=== PATIENT | female | born 1985 | race Caucasian/White ===

== ENCOUNTER 2017-04-02 11:17 | Emergency (ER) | payer OTHER ==
[2017-04-02 11:53] LABS: Bilirubin Negative (Negative); Blood, Urine Trace (Negative); Glucose, Urine (Dipstick) Negative (Negative); Ketone, Urine Negative (Negative); Nitrite Negative (Negative); Protein, Urine (Dipstick) Negative (Neg-Trace); Urobilinogen 0.2 mg/dL (0.2-1.0)
[2017-04-02 12:03] LABS: Bacteria/HPF Rare-Few HPF (None Seen); RBC/HPF 0-3 HPF (0-3); Squamous Epithelial 0-3 HPF (0-3); WBC/HPF 0-3 HPF (0-3)
[2017-04-02] MEDS ORDERED: Ondansetron HCl/PF 4 MG/2 ML Vial ONE (12:53)
[2017-04-02 12:54] LABS: #Basophils 0.1 thou/uL (0.0-0.2); #Eosinphils 0.2 thou/uL (0.0-0.7); #Lymphocytes 1.7 thou/uL (1.20-3.40); #Monocytes 0.3 thou/uL (0.11-0.59); #Neutrophils 3.1 thou/uL (1.40-6.50); %Basophils 1.7 % (0.0-1.0); %Eosinophils 3.5 % (0.0-10.0); %Lymphocytes 32.2 % (21.0-51.0); Hematocrit 40.6 % (36.0-47.0); Mean Platelet Volume 7.6 fL (7.4-10.4); Red Blood Cell (RBC) Count 4.35 mill/uL (4.20-5.40); White Blood Cell (WBC) Count 5.4 thou/uL (4.8-10.8)
[2017-04-02 13:08] LABS: ALT (SGPT) 11 U/L (8-55); AST (SGOT) 13 U/L (5-34); Alkaline Phosphatase 40 U/L (40-150); Anion Gap 16 mmol/L (10-20); BUN (Urea Nitrogen) 14 mg/dL (7.0-18.7); Bilirubin, Total 0.2 mg/dL (0.2-1.2); Calc. Creatinine Clearance 0 mL/min (70-130); Calcium 9.1 mg/dL (7.8-10.44); Carbon Dioxide 20 mmol/L (22-29); Chloride 109 mmol/L (98-107); Estimated GFR-MDRD 82; Globulin 2.7 g/dL (2.4-3.5); Lipase 18 U/L (8-78); Protein, Total 7.2 g/dL (6.0-8.3)
== END 2017-04-02 14:44 | disposition home or self-care (01) ==
LOC: SCSER 11:17
DX: B34.9 Viral infection, unspecified (principal); E27.1 Primary adrenocortical insufficiency; Z87.891 Personal history of nicotine dependence
CPT/HCPCS: 36415; 80053; 81003; 81015; 83690; 85025; 96361; 96374; J2405

== ENCOUNTER 2017-05-31 10:15 | Emergency (ER) | payer OTHER ==
[2017-05-31 11:13] LABS: Bilirubin Negative (Negative); Blood, Urine Negative (Negative); Clarity Clear (Clear); Glucose, Urine (Dipstick) Negative (Negative); Leukocyte Negative (Negative); Nitrite Negative (Negative); Protein, Urine (Dipstick) Negative (Neg-Trace); Urobilinogen 0.2 mg/dL (0.2-1.0); pH, Urine 8.5 (5.0-9.0)
[2017-05-31 11:13] LABS: #Basophils 0.1 thou/uL (0.0-0.2); #Eosinphils 0.2 thou/uL (0.0-0.7); #Lymphocytes 2.4 thou/uL (1.20-3.40); #Monocytes 0.3 thou/uL (0.11-0.59); %Basophils 1.6 % (0.0-1.0); %Eosinophils 3.2 % (0.0-10.0); %Lymphocytes 48.1 % (21.0-51.0); %Monocytes 6.7 % (0.0-10.0); %Neutrophils 40.4 % (42.0-75.0); Hemoglobin 14.1 g/dL (12.0-16.0); Mean Corpuscular HGB CONC 33.5 g/dL (32.0-36.0); Mean Corpuscular Volume 92.6 fl (81.0-99.0); Mean Platelet Volume 7.8 fL (7.4-10.4); Platelet Count 259 thou/uL (130-400); RBC Distribution Width 11.3 % (11.5-14.5); Red Blood Cell (RBC) Count 4.54 mill/uL (4.20-5.40); White Blood Cell (WBC) Count 5.1 thou/uL (4.8-10.8)
[2017-05-31 11:16] LABS: BHCG - Serum Negative (NEGATIVE); Pregs Control Background? CLEAR/WHITE (CLR/WHITE); Pregs Control Bar Appear? YES (CONTROL BAR)
[2017-05-31 11:21] LABS: Anion Gap 15 mmol/L (10-20); BUN (Urea Nitrogen) 9 mg/dL (7.0-18.7); Calc. Creatinine Clearance 0 mL/min (70-130); Calcium 9.9 mg/dL (7.8-10.44); Carbon Dioxide 24 mmol/L (22-29); Chloride 106 mmol/L (98-107); Estimated GFR-MDRD 81; Glucose 83 mg/dL (70-105); Potassium 3.9 mmol/L (3.5-5.1); Sodium 141 mmol/L (136-145)
== END 2017-05-31 12:53 | disposition home or self-care (01) ==
LOC: SCSER 10:15
DX: E86.0 Dehydration (principal); E27.1 Primary adrenocortical insufficiency; Z87.891 Personal history of nicotine dependence
CPT/HCPCS: 80048; 81003; 84443; 84703; 85025; 87086; 96360; 96361

== ENCOUNTER 2017-08-19 14:26 | Emergency (ER) | payer OTHER ==
[2017-08-19 14:58] LABS: Bilirubin Negative (Negative); Blood, Urine Negative (Negative); Clarity Clear (Clear); Glucose, Urine (Dipstick) Negative (Negative); Leukocyte Negative (Negative); Nitrite Negative (Negative); Pregnancy Test - Urine (BHCG) Negative (Negative); Pregu Control Background? CLEAR/WHITE (CLR/WHITE); Pregu Control Bar Appear? YES (CONTROL BAR); Protein, Urine (Dipstick) Negative (Neg-Trace); Urobilinogen 0.2 mg/dL (0.2-1.0); pH, Urine 6.5 (5.0-9.0)
[2017-08-19] MEDS ORDERED: Promethazine HCl 25 MG/ML VIAL ONE (15:12)
[2017-08-19] MEDS ORDERED: Hydrocortisone Sod Succ/PF 100 mg/2 ml Vial ONE (15:21)
[2017-08-19] MEDS ORDERED: Water For Inject, Bacteriostat 30 ML ONE (15:22)
[2017-08-19 15:25] LABS: ALT (SGPT) 12 U/L (8-55); AST (SGOT) 15 U/L (5-34); Albumin 4.5 g/dL (3.5-5.0); Alkaline Phosphatase 39 U/L (40-150); Anion Gap 16 mmol/L (10-20); BUN (Urea Nitrogen) 18 mg/dL (7.0-18.7); Bilirubin, Total 0.3 mg/dL (0.2-1.2); Calc. Creatinine Clearance 0 mL/min (70-130); Calcium 9.2 mg/dL (7.8-10.44); Carbon Dioxide 21 mmol/L (22-29); Chloride 107 mmol/L (98-107); Estimated GFR-MDRD 77; Globulin 2.8 g/dL (2.4-3.5); Glucose 97 mg/dL (70-105); Lipase 18 U/L (8-78); Potassium 3.8 mmol/L (3.5-5.1); Protein, Total 7.3 g/dL (6.0-8.3); Sodium 140 mmol/L (136-145)
[2017-08-19 15:30] LABS: Band 3 % (5-11); Eosinophils 1 % (0-10); Hemoglobin 13.5 g/dL (12.0-16.0); Lymphocytes 27 % (21-51); MDiff Complete? YES; Mean Corpuscular Volume 91.5 fl (81.0-99.0); Monocytes 3 % (0-10); Neutrophil 66 % (42-75); PLT Morphology Comment Appears Adequate; Platelet Count 243 thou/uL (130-400); RBC Distribution Width 11.3 % (11.5-14.5); RBC Morphology Normal; Red Blood Cell (RBC) Count 4.22 mill/uL (4.20-5.40); White Blood Cell (WBC) Count 8.3 thou/uL (4.8-10.8)
== END 2017-08-19 16:40 | disposition home or self-care (01) ==
LOC: SCSER 14:26
DX: R19.7 Diarrhea, unspecified (principal); E27.1 Primary adrenocortical insufficiency
CPT/HCPCS: 80053; 81003; 81025; 82533; 83605; 83690; 85025; 87045; 87046; 87324; 87449; 87899; 96361; 96374; J1720; J2550

== ENCOUNTER 2017-09-22 09:41 | Emergency (ER) | payer OTHER ==
[~2017-09-22 09:41] MED LIST: Iopamidol 370 76% 100 ML VIAL ONE
[2017-09-22 10:24] LABS: Pregnancy Test - Urine (BHCG) Negative (Negative); Pregu Control Background? CLEAR/WHITE (CLR/WHITE); Pregu Control Bar Appear? YES (CONTROL BAR); Specific Gravity 1.013 (1.002-1.036)
[2017-09-22 10:33] LABS: Cocaine Metabolite Screen Not Detected (NotDetected); Methamphetamine Not Detected (NotDetected); Opiate Screen Not Detected (NotDetected); Phencyclidine (PCP) Not Detected (NotDetected); THC/Cannabinoid Screen Not Detected (NotDetected)
[2017-09-22 10:34] LABS: Amphetamine Not Detected (NotDetected); Barbiturates Screen Not Detected (NotDetected); Benzodiazepine Screen Not Detected (NotDetected); Medtox Control Line Valid? VALID (VALID); Methadone Not Detected (NotDetected); Oxycodone Screen Not Detected (NotDetected); Tricyclic Screen Not Detected (NotDetected)
[2017-09-22 10:41] LABS: #Basophils 0.1 thou/uL (0.0-0.2); #Eosinphils 0.2 thou/uL (0.0-0.7); #Monocytes 0.8 thou/uL (0.11-0.59); #Neutrophils 9.6 thou/uL (1.40-6.50); %Basophils 0.8 % (0.0-1.0); %Eosinophils 1.5 % (0.0-10.0); %Lymphocytes 15.4 % (21.0-51.0); %Monocytes 6.2 % (0.0-10.0); %Neutrophils 76.1 % (42.0-75.0); Hemoglobin 13.2 g/dL (12.0-16.0); Mean Corpuscular HGB CONC 34.8 g/dL (32.0-36.0); Mean Corpuscular Hemoglobin 31.9 pg (27.0-31.0); Mean Corpuscular Volume 91.6 fl (81.0-99.0); Platelet Count 231 thou/uL (130-400); RBC Distribution Width 11.8 % (11.5-14.5); Red Blood Cell (RBC) Count 4.14 mill/uL (4.20-5.40); White Blood Cell (WBC) Count 12.7 thou/uL (4.8-10.8)
[2017-09-22 10:57] LABS: ALT (SGPT) 16 U/L (8-55); AST (SGOT) 23 U/L (5-34); Acetaminophen Less than 6.0 mcg/mL (10.0-30.0); Albumin 4.4 g/dL (3.5-5.0); Alcohol 31 mg/dL (Less than 10); Alkaline Phosphatase 40 U/L (40-150); Anion Gap 14 mmol/L (10-20); BUN (Urea Nitrogen) 10 mg/dL (7.0-18.7); Bilirubin, Total 0.2 mg/dL (0.2-1.2); Calc. Creatinine Clearance 0 mL/min (70-130); Carbon Dioxide 23 mmol/L (22-29); Chloride 110 mmol/L (98-107); Estimated GFR-MDRD Greater than 90; Globulin 2.6 g/dL (2.4-3.5); Glucose 83 mg/dL (70-105); Lipase 22 U/L (8-78); Salicylate Less than 8.0 mg/dL (15.0-30.0); Sodium 143 mmol/L (136-145)
[2017-09-22 11:16] LABS: Bilirubin Negative (Negative); Blood, Urine Trace (Negative); Clarity Clear (Clear); Glucose, Urine (Dipstick) Negative (Negative); Leukocyte Small (Negative); Nitrite Negative (Negative); Protein, Urine (Dipstick) Negative (Neg-Trace); Specific Gravity, Urine 1.015 (1.005-1.030); Urobilinogen 0.2 mg/dL (0.2-1.0); pH, Urine 8.5 (5.0-9.0)
[2017-09-22 11:18] LABS: Bacteria/HPF 2+ HPF (None Seen); Squamous Epithelial 0-3 HPF (0-3); WBC/HPF 0-3 HPF (0-3)
[2017-09-22] MEDS ORDERED: Ketorolac Tromethamine 30 MG/ML VIAL ONE (11:25)
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
== END 2017-09-22 11:25 | disposition home or self-care (01) ==
LOC: SCSER 09:41
DX: S00.83XA Contusion of other part of head, initial encounter (principal); S80.01XA Contusion of right knee, initial encounter; R10.9 Unspecified abdominal pain; Z87.442 Personal history of urinary calculi; V89.2XXA Person injured in unspecified motor-vehicle accident, traffic, initial encounter
CPT/HCPCS: 70450; 70486; 71260; 72125; 74177; 80053; 80306; 80307; 81003; 81015; 81025; 83690; 85025; J1885

== ENCOUNTER 2017-11-03 11:39 | Emergency (ER) | payer OTHER | END 2017-11-03 12:34 | disposition home or self-care (01) | LOC: ERS 11:39 | DX: S29.012A Strain of muscle and tendon of back wall of thorax, initial encounter (principal); X58.XXXA Exposure to other specified factors, initial encounter | CPT/HCPCS: 99283 ==

== ENCOUNTER 2018-01-05 11:09 | Emergency (ER) | payer OTHER ==
--- NOTE | 2018-01-05 12:14 | RAD ---
TWO VIEWS OF THE CHEST: COMPARISON: 03/02/14. HISTORY: Mittie's disease. Cough and chest tightness. FINDINGS: Two views of the chest show normal sized cardiomediastinal silhouette. There is no evidence of consol idation, mass, or pleural effusion. The bones are unremarkable. IMPRESSION: No evidence of acute cardiopulmonary disease. POS: [facility]
[2018-01-05 12:22] LABS: MONO NEGATIVE CONTROL ZONE White (Negative) (White); MONO POSITIVE CONTROL Pink Line (Positive) (PINK/RED); Mononucleosis NEGATIVE (NEGATIVE)
[2018-01-05 12:24] LABS: Anion Gap 12 mmol/L (10-20); BUN (Urea Nitrogen) 14 mg/dL (7.0-18.7); Calc. Creatinine Clearance 0 mL/min (70-130); Carbon Dioxide 22 mmol/L (22-29); Chloride 110 mmol/L (98-107); Estimated GFR-MDRD Greater than 90; Glucose 87 mg/dL (70-105); Potassium 4.1 mmol/L (3.5-5.1); Sodium 140 mmol/L (136-145)
[2018-01-05 12:25] LABS: #Basophils 0.1 thou/uL (0.0-0.2); #Eosinphils 0.1 thou/uL (0.0-0.7); #Lymphocytes 1.4 thou/uL (1.20-3.40); #Monocytes 0.5 thou/uL (0.11-0.59); #Neutrophils 4.4 thou/uL (1.40-6.50); %Basophils 1.1 % (0.0-1.0); %Eosinophils 1.9 % (0.0-10.0); %Lymphocytes 22.1 % (21.0-51.0); %Monocytes 7.1 % (0.0-10.0); %Neutrophils 67.8 % (42.0-75.0); Hemoglobin 13.5 g/dL (12.0-16.0); Mean Corpuscular HGB CONC 34.3 g/dL (32.0-36.0); Mean Corpuscular Hemoglobin 31.1 pg (27.0-31.0); Mean Corpuscular Volume 90.8 fL (78.0-98.0); Mean Platelet Volume 7.6 fL (7.4-10.4); Platelet Count 242 thou/uL (130-400); Red Blood Cell (RBC) Count 4.33 mill/uL (4.20-5.40); White Blood Cell (WBC) Count 6.4 thou/uL (4.8-10.8)
== END 2018-01-05 13:27 | disposition home or self-care (01) ==
LOC: SCSER 11:09
DX: B34.9 Viral infection, unspecified (principal); J06.9 Acute upper respiratory infection, unspecified; E27.1 Primary adrenocortical insufficiency
CPT/HCPCS: 71046; 80048; 85025; 86308; 87081; 87430; 87804; 93005

== ENCOUNTER 2018-01-15 17:23 | Emergency (ER) | payer OTHER ==
[2018-01-15 18:39] LABS: Bilirubin Negative (Negative); Blood, Urine Negative (Negative); Clarity CLEAR (Clear); Glucose, Urine (Dipstick) Negative (Negative); Leukocyte Negative (Negative); Nitrite Negative (Negative); Protein, Urine (Dipstick) Negative (Neg-Trace); Specific Gravity, Urine 1.016 (1.002-1.036); Urobilinogen 0.2 mg/dL (0.2-1.0); pH, Urine 6.5 (5.0-9.0)
[2018-01-15 18:42] LABS: Pregnancy Test - Urine (BHCG) Negative (Negative); Pregu Control Background? CLEAR/WHITE (CLR/WHITE); Pregu Control Bar Appear? YES (CONTROL BAR); Specific Gravity 1.016 (1.002-1.036)
[2018-01-15 18:49] LABS: #Eosinphils 0.1 thou/uL (0.0-0.7); #Lymphocytes 1.9 thou/uL (1.20-3.40); #Monocytes 0.4 thou/uL (0.11-0.59); %Basophils 0.9 % (0.0-1.0); %Eosinophils 1.4 % (0.0-10.0); %Lymphocytes 34.9 % (21.0-51.0); %Monocytes 7.9 % (0.0-10.0); Hemoglobin 13.1 g/dL (12.0-16.0); Mean Corpuscular HGB CONC 33.1 g/dL (32.0-36.0); Mean Corpuscular Hemoglobin 31.1 pg (27.0-31.0); Mean Platelet Volume 7.5 fL (7.4-10.4); Platelet Count 269 thou/uL (130-400); RBC Distribution Width 11.6 % (11.5-14.5); Red Blood Cell (RBC) Count 4.21 mill/uL (4.20-5.40); White Blood Cell (WBC) Count 5.5 thou/uL (4.8-10.8)
[2018-01-15 19:09] LABS: ALT (SGPT) 8 U/L (8-55); AST (SGOT) 14 U/L (5-34); Albumin 4.6 g/dL (3.5-5.0); Alkaline Phosphatase 33 U/L (40-150); Anion Gap 13 mmol/L (10-20); BUN (Urea Nitrogen) 14 mg/dL (7.0-18.7); Bilirubin, Total 0.6 mg/dL (0.2-1.2); Calc. Creatinine Clearance 0 mL/min (70-130); Calcium 9.3 mg/dL (7.8-10.44); Carbon Dioxide 21 mmol/L (22-29); Chloride 108 mmol/L (98-107); Estimated GFR-MDRD 80; Globulin 2.8 g/dL (2.4-3.5); Glucose 80 mg/dL (70-105); Lipase 12 U/L (8-78); Potassium 3.8 mmol/L (3.5-5.1); Protein, Total 7.4 g/dL (6.0-8.3); Sodium 138 mmol/L (136-145)
[2018-01-15] MEDS ORDERED: Ketorolac Tromethamine 30 MG/ML VIAL ONE (19:40)
--- NOTE | 2018-01-15 19:45 | ULT ---
PELVIC ULTRASOUND WITH RIVERA SCALE AND DOPPLER COLOR FLOW IMAGING TRANSVAGINAL PELVIC ULTRASOUND/TRANSABDOMINAL PELVIC ULTRASOUND 01/15/18 FINDINGS: There is surgical absence of the left ovary. Doppler evaluation confirms flow to the right ovary. The re is a 7 mm endometrial stripe which is appropriate in size for patient's age. There is a small hypo echoic focus at the lower uterine segment region. This could relate to a small cyst or alternatively a focus of localized endometrial fluid. Small volume of free pelvic fluid is present. The documented size of the uterus is 7.3 cm in length and of the right ovary is 4.2 cm in length. IMPRESSION: 1. Surgical absence of the left ovary. 2. Doppler evaluation confirms flow in the right ovary. 3. Mild free pelvic fluid is nonspecific. 4. Additional details are described above. POS: [facility]
== END 2018-01-15 20:27 | disposition home or self-care (01) ==
LOC: ERS 17:23
DX: N83.201 Unspecified ovarian cyst, right side (principal); I34.1 Nonrheumatic mitral (valve) prolapse; Z79.899 Other long term (current) drug therapy; Z87.442 Personal history of urinary calculi
CPT/HCPCS: 36415; 76856; 80053; 81003; 81025; 83690; 84702; 85025; 96372; J1885

== ENCOUNTER 2018-05-14 13:14 | Emergency (ER) | payer OTHER ==
[2018-05-14 14:10] LABS: Bilirubin Negative (Negative); Blood, Urine Negative (Negative); Clarity Clear (Clear); Glucose, Urine (Dipstick) Negative (Negative); Leukocyte Negative (Negative); Nitrite Negative (Negative); Protein, Urine (Dipstick) Negative (Neg-Trace); Specific Gravity, Urine 1.015 (1.005-1.030); Urobilinogen 0.2 mg/dL (0.2-1.0)
[2018-05-14 14:16] LABS: #Basophils 0.1 thou/uL (0.0-0.2); #Eosinphils 0.1 thou/uL (0.0-0.7); #Lymphocytes 1.9 thou/uL (1.20-3.40); #Monocytes 0.4 thou/uL (0.11-0.59); #Neutrophils 5.2 thou/uL (1.40-6.50); %Lymphocytes 24.2 % (21.0-51.0); %Monocytes 5.4 % (0.0-10.0); %Neutrophils 68.4 % (42.0-75.0); Hemoglobin 13.8 g/dL (12.0-16.0); Mean Corpuscular HGB CONC 33.8 g/dL (32.0-36.0); Mean Corpuscular Hemoglobin 31.5 pg (27.0-31.0); Mean Corpuscular Volume 93.2 fL (78.0-98.0); Mean Platelet Volume 8.6 fL (7.4-10.4); Platelet Count 239 thou/uL (130-400); RBC Distribution Width 11.8 % (11.5-14.5); Red Blood Cell (RBC) Count 4.38 mill/uL (4.20-5.40); White Blood Cell (WBC) Count 7.6 thou/uL (4.8-10.8)
[2018-05-14 14:25] LABS: Anion Gap 12 mmol/L (10-20); BUN (Urea Nitrogen) 18 mg/dL (7.0-18.7); Calc. Creatinine Clearance 0 mL/min (70-130); Carbon Dioxide 24 mmol/L (22-29); Chloride 108 mmol/L (98-107); Estimated GFR-MDRD Greater than 90; Glucose 84 mg/dL (70-105); Potassium 3.8 mmol/L (3.5-5.1); Sodium 140 mmol/L (136-145)
[2018-05-16 16:52] LABS: Chlamydia by PCR Not Detected (NotDetected); GC by PCR Not Detected (NotDetected)
== END 2018-05-14 14:50 | disposition home or self-care (01) ==
LOC: SCSER 13:14
DX: R10.30 Lower abdominal pain, unspecified (principal); R10.2 Pelvic and perineal pain; Z79.899 Other long term (current) drug therapy
CPT/HCPCS: 80048; 81003; 84702; 85025; 87480; 87491; 87510; 87591; 87660; 93005

== ENCOUNTER 2018-11-06 12:32 | Emergency (ER) | payer OTHER ==
[2018-11-06 13:22] LABS: #Basophils 0.1 thou/uL (0.0-0.2); #Eosinphils 0.1 thou/uL (0.0-0.7); #Lymphocytes 1.8 thou/uL (1.20-3.40); #Monocytes 0.4 thou/uL (0.11-0.59); #Neutrophils 4.1 thou/uL (1.40-6.50); %Basophils 1.1 % (0.0-1.0); %Eosinophils 1.5 % (0.0-10.0); %Lymphocytes 28.1 % (21.0-51.0); %Monocytes 6.1 % (0.0-10.0); %Neutrophils 63.4 % (42.0-75.0); Hemoglobin 13.3 g/dL (12.0-16.0); Mean Corpuscular HGB CONC 32.8 g/dL (32.0-36.0); Mean Corpuscular Hemoglobin 31.4 pg (27.0-31.0); Mean Corpuscular Volume 95.8 fL (78.0-98.0); Mean Platelet Volume 7.7 fL (7.4-10.4); Platelet Count 235 thou/uL (130-400); RBC Distribution Width 12.4 % (11.5-14.5); Red Blood Cell (RBC) Count 4.23 mill/uL (4.20-5.40); White Blood Cell (WBC) Count 6.4 thou/uL (4.8-10.8)
[2018-11-06 13:27] LABS: Bilirubin Negative (Negative); Blood, Urine Trace (Negative); Clarity Clear (Clear); Glucose, Urine (Dipstick) Negative (Negative); Leukocyte Negative (Negative); Nitrite Negative (Negative); Protein, Urine (Dipstick) Negative (Neg-Trace); Urobilinogen 0.2 mg/dL (Less than 2)
[2018-11-06 13:29] LABS: Pregnancy Test - Urine (BHCG) Negative (Negative); Pregu Control Background? CLEAR/WHITE (CLR/WHITE); Pregu Control Bar Appear? YES (CONTROL BAR); Specific Gravity 1.015 (1.002-1.036)
[2018-11-06 13:31] LABS: Anion Gap 12 mmol/L (10-20); BUN (Urea Nitrogen) 16 mg/dL (7.0-18.7); Calc. Creatinine Clearance 0 mL/min (70-130); Calcium 9.2 mg/dL (7.8-10.44); Carbon Dioxide 24 mmol/L (22-29); Chloride 107 mmol/L (98-107); Estimated GFR-MDRD 86; Glucose 93 mg/dL (70-105); Potassium 4.1 mmol/L (3.5-5.1); Sodium 139 mmol/L (136-145)
[2018-11-06 13:37] LABS: RBC/HPF 0-3 HPF (0-3); WBC/HPF None Seen HPF (0-3)
[2018-11-06 13:38] LABS: Bacteria/HPF 1+ HPF (None Seen)
--- NOTE | 2018-11-06 14:04 | ULT ---
EXAM: Pelvic ultrasound HISTORY: Pelvic pain with negative test. COMPARISON: None TECHNIQUE: Multiple grayscale and color Doppler images were obtained in a transabdominal and transvag inal pelvic ultrasound. Spectral analysis of the Doppler waveforms of the ovaries were performed. FINDINGS: CERVIX: No evidence of nabothian cysts. UTERUS: Normal in size without focal abnormality. ENDOMETRIAL STRIPE: 9 mm. No free fluid is seen in the pelvis. RIGHT OVARY: Normal flow without focal mass. A dominant follicle is seen in the right ovary measuring 2.8 cm in size. LEFT OVARY: Surgically absent IMPRESSION: No significant pelvic abnormality
--- NOTE | 2018-11-06 14:49 | CT ---
ABDOMEN AND PELVIC CT SCAN WITH IV CONTRAST: HISTORY: Right lower quadrant pain. COMPARISON: 11/17/2016 and 09/22/2017. FINDINGS: The lung bases are clear. Status post cholecystectomy. The liver, pancreas, spleen, and adrenal gla nds are unremarkable. Stable 2.9 x 4.1 cm anterior perirenal cyst. No renal calculus or acute ob struction. No large or small bowel obstruction. Normal-appearing appendix. In the cecum, there is a 0.4 x 1.5 cm diameter circumscribed hyperdensity probably representing some type of ingested radiop aque pill. Moderate free cul-de-sac fluid. A 2.6 cm right ovarian follicle cyst. No other acute pr ocess. IMPRESSION: Dominant follicle right ovary with some free cul-de-sac fluid. Stable left anterior perirenal cyst. No evidence for acute appendicitis. No other significant acute process. POS: [facility]
[2018-11-07 23:05] LABS: Chlamydia by PCR Not Detected (NotDetected); GC by PCR Not Detected (NotDetected)
== END 2018-11-06 15:00 | disposition home or self-care (01) ==
LOC: SCSER 12:32
DX: N83.201 Unspecified ovarian cyst, right side (principal); F41.9 Anxiety disorder, unspecified; Z87.891 Personal history of nicotine dependence; Z79.899 Other long term (current) drug therapy
CPT/HCPCS: 74177; 76856; 80048; 81003; 81015; 81025; 85025; 87480; 87491; 87510; 87591; 87660; 93005; 96360; 96361

== ENCOUNTER 2018-12-04 09:21 | Emergency (ER) | payer OTHER ==
[2018-12-04 10:33] LABS: Bilirubin Negative (Negative); Blood, Urine Negative (Negative); Clarity Clear (Clear); Glucose, Urine (Dipstick) Normal (Negative); Leukocyte Negative Leu/uL (Negative); Nitrite Negative (Negative); Protein, Urine (Dipstick) Negative (Neg-Trace); Urobilinogen Normal mg/dL (Less than 2)
[2018-12-04 10:35] LABS: Pregnancy Test - Urine (BHCG) Negative (Negative); Pregu Control Background? CLEAR/WHITE (CLR/WHITE); Pregu Control Bar Appear? YES (CONTROL BAR); Specific Gravity 1.007 (1.002-1.036)
[2018-12-04] MEDS ORDERED: Hydrocortisone Sod Succ/PF 100 mg/2 ml Vial ONE (10:35)
[2018-12-04 10:42] LABS: #Lymphocytes 1.3 thou/uL (1.20-3.40); #Monocytes 0.2 thou/uL (0.11-0.59); #Neutrophils 4.9 thou/uL (1.40-6.50); %Basophils 0.5 % (0.0-1.0); %Eosinophils 0.5 % (0.0-10.0); %Lymphocytes 19.8 % (21.0-51.0); %Monocytes 2.5 % (0.0-10.0); %Neutrophils 76.7 % (42.0-75.0); Hemoglobin 14.2 g/dL (12.0-16.0); Mean Corpuscular HGB CONC 33.8 g/dL (32.0-36.0); Mean Corpuscular Hemoglobin 31.7 pg (27.0-31.0); Mean Corpuscular Volume 93.6 fL (78.0-98.0); Mean Platelet Volume 8.1 fL (7.4-10.4); Platelet Count 273 thou/uL (130-400); RBC Distribution Width 11.7 % (11.5-14.5); Red Blood Cell (RBC) Count 4.49 mill/uL (4.20-5.40); White Blood Cell (WBC) Count 6.4 thou/uL (4.8-10.8)
[2018-12-04 10:54] LABS: ALT (SGPT) 9 U/L (8-55); AST (SGOT) 12 U/L (5-34); Albumin 4.8 g/dL (3.5-5.0); Alkaline Phosphatase 38 U/L (40-150); Anion Gap 12 mmol/L (10-20); BUN (Urea Nitrogen) 14 mg/dL (7.0-18.7); Bilirubin, Total 0.6 mg/dL (0.2-1.2); Calc. Creatinine Clearance 0 mL/min (70-130); Calcium 10.3 mg/dL (7.8-10.44); Carbon Dioxide 22 mmol/L (22-29); Chloride 109 mmol/L (98-107); Estimated GFR-MDRD 77; Globulin 2.9 g/dL (2.4-3.5); Glucose 90 mg/dL (70-105); Potassium 3.5 mmol/L (3.5-5.1); Protein, Total 7.7 g/dL (6.0-8.3); Sodium 139 mmol/L (136-145)
== END 2018-12-04 12:51 | disposition home or self-care (01) ==
LOC: ERS 09:21
DX: E27.2 Addisonian crisis (principal); F41.9 Anxiety disorder, unspecified; Z87.891 Personal history of nicotine dependence; Z79.899 Other long term (current) drug therapy
CPT/HCPCS: 80053; 81003; 81025; 85025; 87086; 96361; 96374; J1720

== ENCOUNTER 2019-01-10 12:32 | Emergency (ER) | payer OTHER ==
[2019-01-10 13:06] LABS: #Basophils 0.1 thou/uL (0.0-0.2); #Eosinphils 0.1 thou/uL (0.0-0.7); #Lymphocytes 1.8 thou/uL (1.20-3.40); #Monocytes 0.4 thou/uL (0.11-0.59); #Neutrophils 4.1 thou/uL (1.40-6.50); %Eosinophils 2.1 % (0.0-10.0); %Lymphocytes 27.7 % (21.0-51.0); %Monocytes 5.4 % (0.0-10.0); %Neutrophils 63.8 % (42.0-75.0); Hemoglobin 13.3 g/dL (12.0-16.0); Mean Corpuscular HGB CONC 33.8 g/dL (32.0-36.0); Mean Corpuscular Hemoglobin 31.6 pg (27.0-31.0); Mean Corpuscular Volume 93.6 fL (78.0-98.0); Mean Platelet Volume 8.2 fL (7.4-10.4); Platelet Count 246 thou/uL (130-400); RBC Distribution Width 12.4 % (11.5-14.5); White Blood Cell (WBC) Count 6.4 thou/uL (4.8-10.8)
[2019-01-10 13:19] LABS: ALT (SGPT) 17 U/L (8-55); AST (SGOT) 17 U/L (5-34); Albumin 4.4 g/dL (3.5-5.0); Alkaline Phosphatase 36 U/L (40-110); Anion Gap 15 mmol/L (10-20); BUN (Urea Nitrogen) 13 mg/dL (7.0-18.7); Bilirubin, Total 0.3 mg/dL (0.2-1.2); Calc. Creatinine Clearance 0 mL/min (70-130); Calcium 9.2 mg/dL (7.8-10.44); Carbon Dioxide 23 mmol/L (22-29); Chloride 107 mmol/L (98-107); Estimated GFR-MDRD 78; Globulin 2.8 g/dL (2.4-3.5); Glucose 93 mg/dL (70-105); Potassium 3.7 mmol/L (3.5-5.1); Protein, Total 7.2 g/dL (6.0-8.3); Sodium 141 mmol/L (136-145)
[2019-01-10] MEDS ORDERED: methylPREDNISolone Sod Succ/PF 125 MG/2 ML VIAL ONE (13:22)
[2019-01-10 13:35] LABS: BHCG - Serum Negative (NEGATIVE); Pregs Control Background? CLEAR/WHITE (CLR/WHITE); Pregs Control Bar Appear? YES (CONTROL BAR)
[2019-01-10 14:01] LABS: Bilirubin Negative (Negative); Blood, Urine Negative (Negative); Clarity Clear (Clear); Glucose, Urine (Dipstick) Negative (Negative); Leukocyte Negative (Negative); Nitrite Negative (Negative); Protein, Urine (Dipstick) Negative (Neg-Trace); Urobilinogen 0.2 mg/dL (Less than 2)
[2019-01-10 14:46] LABS: Thyroid Stimulating Hormone 0.5858 uIU/mL (0.35-4.94)
== END 2019-01-10 14:39 | disposition home or self-care (01) ==
LOC: SCSER 12:32
DX: E86.0 Dehydration (principal); R53.83 Other fatigue; F41.9 Anxiety disorder, unspecified; Z87.891 Personal history of nicotine dependence; Z79.899 Other long term (current) drug therapy
CPT/HCPCS: 80053; 81003; 84443; 84703; 85025; 96361; 96374; J2930

== ENCOUNTER 2019-02-27 01:59 | Observation (INO) | payer OTHER ==
[2019-02-27 04:18] LABS: Bacteria/HPF None Seen HPF (None Seen); Bilirubin Negative (Negative); Blood, Urine 2+ (Negative); Clarity Clear (Clear); Glucose, Urine (Dipstick) Normal (Negative); Leukocyte Negative Leu/uL (Negative); Nitrite Negative (Negative); Protein, Urine (Dipstick) Negative (Neg-Trace); RBC/HPF 0-3 HPF (0-3); Squamous Epithelial None Seen HPF (0-3); Urobilinogen Normal mg/dL (Less than 2); WBC/HPF 0-3 HPF (0-3)
[2019-02-27 04:20] LABS: Pregnancy Test - Urine (BHCG) Negative (Negative); Pregu Control Background? CLEAR/WHITE (CLR/WHITE); Pregu Control Bar Appear? YES (CONTROL BAR)
[2019-02-27] MEDS ORDERED: Ondansetron ODT 4 MG TAB PO PRN (04:57)
[2019-02-27] MEDS ORDERED: Loperamide HCl 2 MG CAP PO PRN ×2 (04:57)
[2019-02-27] MEDS ORDERED: Acetaminophen 500 MG TAB PO PRN (04:57)
[2019-02-27 05:28] VITALS: BMI 24.0
[2019-02-27] MEDS: Hydrocortisone Sod Succ/PF 100 mg/2 ml Vial IVP SCH ×3 (06:01→18:17)
[2019-02-27] MEDS: methylPREDNISolone Sod Succ 40 MG VIAL IVP SCH ×3 (06:01→18:18)
[2019-02-27] MEDS: Sodium Chloride 0.9% 1,000 ML IV SCH ×2 (06:01→16:47)
--- NOTE | 2019-02-27 06:22 | HP ---
PRIMARY CARE PROVIDER: Amy Montana PA-C CHIEF COMPLAINT: Nausea, vomiting, and diarrhea. HISTORY OF PRESENT ILLNESS: This is a 33-year-old female, who initially presented to [place] [facility] with complaints of chills, fever, nausea, vomiting, and intractable diarrhea. The patient states her symptoms began in the last 24 to 48 hours as her father had similar symptoms over the last 2 to 3 days. The patient states she has been assisting her father and helping care for him when she developed her symptoms. 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 The patient states she usually titrates her dosage based on illness, but was unable to hold down her chronic medications due to persistent nausea and vomiting. The patient admitted to abdominal cramping, multiple bouts of diarrhea, but no hematemesis or melena, or blood in the stool. 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 The patient denied any travel history, change to her dietary regimen, but did admit to exposure to her father who had similar symptoms. In the emergency room, the patient underwent general evaluation, receiving multiple medications to include IV Solu-Cortef and IV Solu-Medrol. The patient was also given intravenous normal saline boluses and IV Zofran. The patient states she was improving symptomatically with decreased abdominal cramping and resolution of vomiting. The patient was referred to [facility] for further evaluation and consideration for continuation of Solu-Cortef and Solu-Medrol. PAST MEDICAL HISTORY: 1. Lauri's disease. 2. Anxiety. 3. History of renal lithiasis. 4. Mitral valve prolapse. PAST SURGICAL HISTORY: 1. Status post cholecystectomy. 2. Status post dilation and curettage. 3. Status post left fallopian tube and ovarian removal. CURRENT MEDICATIONS: 1. Hydrocortisone 10 mg p.o. t.i.d. 2. Clonazepam 1 mg p.o. at bedtime. 3. Potassium chloride 20 mEq p.o. daily. 4. Zofran ODT 4 mg p.o. q.6 hours p.r.n. 5. Florinef 0.1 mg p.o. daily. 6. Agnieszka root extract 1000 mg p.o. daily. ALLERGIES: TO AMOXICILLIN, BACTRIM, SULFA. FAMILY HISTORY: Mother with structural heart disease of unknown type. SOCIAL HISTORY: No current alcohol, tobacco, or illicit drug use. Quit tobacco products 5 to 10 years prior to this evaluation. Functional of all activities of daily living. REVIEW OF SYSTEMS: CONSTITUTIONAL: Negative for weight loss or gain, ability to conduct usual activities. SKIN: Negative for rash, itching. EYES: Negative for double vision, pain. ENT/MOUTH: Negative for nose bleeding, neck stiffness, pain, tenderness. CARDIOVASCULAR: Negative for palpitations, dyspnea on exertion, orthopnea. RESPIRATORY: Negative for shortness of breath, wheezing, cough, hemoptysis, fever or night sweats. GASTROINTESTINAL: Negative for poor appetite, abdominal pain, heartburn, nausea, vomiting, constipation, or diarrhea. GENITOURINARY: Negative for urgency, frequency, dysuria, nocturia. MUSCULOSKELETAL: Negative for pain, swelling. NEUROLOGIC/PSYCHIATRIC: Negative for anxiety, depression. ALLERGY/IMMUNOLOGIC: Negative for skin rash, bleeding tendency. Otherwise negative except as stated per HPI. PHYSICAL EXAMINATION: VITAL SIGNS: On admission, blood pressure 148/91, pulse 104, respiratory rate 20, temperature 101 degrees Fahrenheit, O2 saturation 100% on room air. GENERAL APPEARANCE: This is a 33-year-old female, alert and oriented x3, pale appearing, pleasant, in no acute distress. HEENT: Pupils are equal, round, reactive to light and accommodation. Extraocular muscles are intact. No scleral icterus. No conjunctival injection. Nares patent. OP is clear. Oral mucosa dry. NECK: Supple. No cervical adenopathy. No thyromegaly. No carotid bruits. No JVD appreciated. Cervical spine with full active and passive range of motion. No meningeal signs noted. CHEST: Lungs are clear to auscultation bilaterally. CARDIOVASCULAR: S1 and S2 without noted murmur, rub, or gallop. ABDOMEN: Rounded, soft with mild tenderness to palpation diffusely. No rebound or guarding appreciated. No palpable mass. EXTREMITIES: Warm and dry with fair turgor. No clubbing, cyanosis, or asymmetric edema appreciated. Pulses palpable distally at the dorsalis pedis, posterior tibial, and popliteal arteries bilaterally. Capillary refill less than 2 seconds. NEUROLOGIC: Cranial nerves 2 through 12 are grossly intact. No focal or lateralizing signs appreciated. PERTINENT LABORATORY AND X-RAY FINDINGS: Basic metabolic profile within normal limits. Lactic acid level 1.2. LFTs within normal limits. CBC showed a white blood cell count of 10.1, hemoglobin 14, hematocrit 42, platelet count 258 with 81% neutrophilia. Urinalysis positive for blood, otherwise negative. ASSESSMENT AND PLAN: 1. Acute gastroenteritis. The patient will be observed on the medical floor. We will continue IV normal saline at 100 mL/h. Antiemetics as clinically indicated. Clear liquids as tolerated. Suspect viral etiology. 2. Addisonian crisis. Improved after initial doses of Solu-Medrol and Solu-Cortef in the emergency room. We will continue Solu-Cortef 50 mg IV q.6 hours with additional Solu-Medrol 40 mg IV q.6 hours. Continue IV fluids as outlined in #1. 3. Dehydration. Continue IV fluids as outlined previously. Encourage increased free water intake orally. 4. Anxiety disorder. Continue clonazepam 1 mg p.o. at bedtime. 5. Prophylaxis. SCDs while in bed. Pepcid 20 mg IV b.i.d. CODE STATUS: Full. Surrogate medical decision maker is the patient's father. Job ID: [id number]
[2019-02-27] MEDS ORDERED: Potassium Chloride 20 MEQ TAB PO SCH (08:00)
[2019-02-27] MEDS: Famotidine/PF 20 mg/2ml Vial SLOW IVP SCH ×2 (08:04→20:44)
[2019-02-27] MEDS ORDERED: ALPRAZolam 1 MG TAB PO PRN (08:56)
[2019-02-27] MEDS ORDERED: FLU VACC QS2019-20(6MOS UP)/PF 60 MCG/0.5 ML SYRINGE IM ONE (09:00)
[2019-02-27] MEDS: Fludrocortisone Acetate 0.1 MG TAB PO SCH (09:06)
[2019-02-27] MEDS: Ondansetron PF 4 MG/2 ML Vial IVP PRN ×2 (14:14→20:44)
[2019-02-27] MEDS ORDERED: Melatonin 3 MG TAB PO PRN (18:25)
[2019-02-27] MEDS ORDERED: traZODone HCl 50 MG TAB PO PRN (18:25)
[2019-02-27] MEDS ORDERED: Zolpidem Tartrate 5 MG TAB PO PRN (19:03)
[2019-02-27] MEDS ORDERED: clonazePAM 1 MG TAB PO SCH (21:00)
[2019-02-27] MEDS ORDERED: Hydrocortisone Sod Succ/PF 100 mg/2 ml Vial IVP SCH (22:00)
[2019-02-28] MEDS ORDERED: Hydrocortisone Sod Succ/PF 100 mg/2 ml Vial IVP SCH (02:00)
[2019-02-28] MEDS: Sodium Chloride 0.9% 1,000 ML IV SCH (02:00)
[2019-02-28 06:10] LABS: Band 5 % (5-11); Eosinophils 3 % (0-10); Hemoglobin 10.8 g/dL (12.0-16.0); Lymphocytes 19 % (21-51); MDiff Complete? YES; Mean Corpuscular HGB CONC 33.8 g/dL (32.0-36.0); Mean Corpuscular Hemoglobin 32.4 pg (27.0-31.0); Monocytes 6 % (0-10); Neutrophil 67 % (42-75); Platelet Count 204 thou/uL (130-400); Platelet Morphology Comment Appears Adequate; Red Blood Cell (RBC) Count 3.32 mill/uL (4.20-5.40)
[2019-02-28 06:29] LABS: Anion Gap 8 mmol/L (10-20); BUN (Urea Nitrogen) 10 mg/dL (7.0-18.7); Calc. Creatinine Clearance 128 mL/min (70-130); Calcium 7.6 mg/dL (7.8-10.44); Carbon Dioxide 24 mmol/L (22-29); Chloride 114 mmol/L (98-107); Estimated GFR-MDRD Greater than 90; Glucose 97 mg/dL (70-105); Potassium 3.1 mmol/L (3.5-5.1); Sodium 143 mmol/L (136-145)
[2019-02-28] MEDS ORDERED: predniSONE 20 MG TAB PO SCH (08:00)
[2019-02-28] MEDS ORDERED: predniSONE 1 MG TAB PO SCH (08:00)
--- NOTE | 2019-02-28 08:09 | PDOC.HOSPP ---
- Subjective Encounter Date: 02/27/19 Encounter Time: 11:30 Subjective: pt up in bed no complains - Objective Vital Signs & Weight: Vital Signs (12 hours) Temp Pulse Resp BP Pulse Ox 02/28/19 05:00 97.6 F 68 18 93/44 L 96 Weight Weight 149 lb 3.2 oz I&O: 02/27/19 02/28/19 03/01/19 06:59 06:59 06:59 Intake Total 3086 Balance 3086 Result Diagrams: 02/28/19 05:38 02/28/19 05:38 Hospitalist ROS - Review of Systems Respiratory: denies: cough, dry, shortness of breath, hemoptysis, SOB with excertion, pleuritic pain, sputum, wheezing, other Cardiovascular: denies: chest pain, palpitations, orthopnea, paroxysmal noc. dyspnea, edema, light headedness, other Gastrointestinal: denies: nausea, vomiting, abdominal pain, diarrhea, constipation, melena, hematochezia, other - Medication Medications: Active Medications Generic Name Dose Route Start Last Admin Trade Name Freq PRN Reason Stop Dose Admin Acetaminophen 1,000 mg 02/27/19 04:57 02/27/19 06:13 Tylenol PO 1,000 mg Q6H PRN Administration Mild Pain (1-3) Cholecalciferol 1,000 units 02/27/19 09:00 02/27/19 11:22 Vitamin D3 PO 1,000 units DAILY JONH Administration Clonazepam 1 mg 02/27/19 21:00 02/27/19 20:44 Klonopin PO 1 mg HS JONH Administration Famotidine 20 mg 02/27/19 09:00 02/27/19 20:44 Pepcid SLOW IVP 20 mg Q12HR JONH Administration Fludrocortisone Acetate 0.1 mg 02/27/19 09:00 02/27/19 09:06 Florinef PO 0.1 mg DAILY JONH Administration Ondansetron HCl 4 mg 02/27/19 04:57 02/27/19 20:44 Zofran IVP 4 mg Q6H PRN Administration Nausea/Vomiting Zolpidem Tartrate 5 mg 02/27/19 19:03 02/27/19 20:44 Ambien PO 5 mg HSPRN PRN Administration .INSOMNIA - Exam Neck: negative: supple, symmetric, no JVD, no thyromegaly, no lymphadenopathy, no carotid bruit, JVD Heart: negative: RRR, no murmur, no gallops, no rubs, normal peripheral pulses, irregular, diminshed peripheral pulses, murmur present, II/IV, III/IV Respiratory: negative: CTAB, no wheezes, no rales, no ronchi, normal chest expansion, no tachypnea, normal percussion, rales, rhonchi, tachypneic, wheezes Hosp A/P (1) Adrenal insufficiency Code(s): E27.40 - UNSPECIFIED ADRENOCORTICAL INSUFFICIENCY Status: Acute (2) Nausea & vomiting Code(s): R11.2 - NAUSEA WITH VOMITING, UNSPECIFIED Status: Acute (3) Diarrhea Code(s): R19.7 - DIARRHEA, UNSPECIFIED Status: Acute - Plan will advance her diet and change her solucortef to q8 and may be in am will start her home meds. will also stop her steroids. will check labs in am. she has no more diarrhea.
[2019-02-28] MEDS ORDERED: Potassium Chloride 10 MEQ in Premix Bag 1 BAG IVPB SCH (08:15)
[2019-02-28] MEDS ORDERED: Potassium Chloride 20 MEQ TAB PO SCH ×2 (08:15→13:15)
[2019-02-28] MEDS: Fludrocortisone Acetate 0.1 MG TAB PO SCH (08:40)
[2019-02-28] MEDS ORDERED: Hydrocortisone 10 mg Tablet PO SCH (09:00)
[2019-02-28] MEDS ORDERED: Famotidine 20 MG TAB PO SCH (09:00)
[2019-02-28 11:33] VITALS: BP 105/68; TEMP 98.1
[2019-02-28] MEDS: TRIAZOLAM PO SCH (14:07)
--- NOTE | 2019-03-01 21:17 | DIS ---
DATE OF ADMISSION: 02/27/2019 DATE OF DISCHARGE: 02/28/2019 DISCHARGE DIAGNOSES: 1. Nausea, vomiting, and abdominal pain. 2. Adrenal insufficiency. 3. Diarrhea. HOSPITAL COURSE: The patient is a very pleasant 33-year-old female, who has a history of adrenal insufficiency, who comes in to the hospital for nausea, vomiting, and diarrhea. The patient was taking care of her ill father, started having significant nausea, vomiting, was unable to take her steroids. She was initially admitted to the hospital, was hydrated, and was started on Solu-Cortef. Her diarrhea actually resolved even prior to getting her sampling. Her electrolytes were replaced. She felt better. She was able to tolerate a regular meal. She was watched overnight. Also, her blood pressures were back to her baseline and then she was discharged home. She has been asked to follow up with the emergency room specialist. HOME MEDICATIONS: 1. Hydrocortisone, she takes 10 in the morning, 10 in the evening, and 3 in the afternoon. 2. Clonazepam 1 mg at bedtime. 3. Xanax 1 p.o. as needed. 4. Vitamin D 1000 units daily. 5. Florinef 0.1 daily. 6. Potassium 20 mEq daily. 7. Zofran and promethazine as needed. PHYSICAL EXAMINATION: VITAL SIGNS: Temperature 98.1, pulse 69, respirations 18, oxygen saturation 98% on room air, . GENERAL: She is awake, alert, and oriented x3. Does not appear in distress. CV: S1 and S2 present. No murmurs, rubs or gallops. ABDOMEN: Soft and nontender. Bowel sounds are present x2. Again, she will be discharged home. She will follow up with her primary and her emergency room specialist. Job ID: [id number]
== END 2019-02-28 16:00 | disposition home or self-care (01) ==
LOC: ERS 01:59 → T4-A 04:00
PROVIDERS: ADMIT Family Medicine; ATTEND Family Medicine
DX: K52.9 Noninfective gastroenteritis and colitis, unspecified (principal); E86.0 Dehydration; E27.1 Primary adrenocortical insufficiency; Z79.899 Other long term (current) drug therapy; Z87.891 Personal history of nicotine dependence; Z88.0 Allergy status to penicillin; Z88.2 Allergy status to sulfonamides
CPT/HCPCS: 36415; 80048; 81003; 81015; 81025; 85007; 85027; 96360; 96361; 96374; 96375; 96376; G0378; J1720; J2405; J2920; J3480; S0028

== ENCOUNTER 2020-04-02 11:33 | Outpatient (CLI) | payer OTHER ==
--- NOTE | 2020-04-02 13:15 | RAD ---
2 views lumbar spine: 04/02/2020 COMPARISON: None HISTORY: Back pain FINDINGS: Postoperative clips are noted in the right upper quadrant. There is mild levoscoliosis of the upper lumbar spine. Lumbar pedicles appear intact on frontal imagi ng. Lateral imaging demonstrates normal vertebral body height and alignment. Lower lumbar spine facet hypertrophy present. IMPRESSION: No acute findings.
--- NOTE | 2020-04-02 13:15 | RAD ---
Cervical spine 2 views 04/02/2020 HISTORY: Neck pain FINDINGS: Cervical vertebral body height and alignment appears within normal limits. No prevertebral soft tissue swelling. No acute osseous abnormality. IMPRESSION: No acute findings.
== END 2020-04-02 11:34 | disposition home or self-care (01) ==
LOC: SCSRAD 11:33
PROVIDERS: ATTEND Nurse Practitioner Family
DX: M54.5 Low back pain (principal); M54.2 Cervicalgia
CPT/HCPCS: 70360; 72100

== ENCOUNTER 2022-06-01 09:59 | Emergency (ER) | payer OTHER ==
[2022-06-01 10:55] LABS: #Basophils 0.1 thou/uL (0.0-0.2); #Eosinphils 0.2 thou/uL (0.0-0.7); #Lymphocytes 1.9 thou/uL (1.20-3.40); #Monocytes 0.5 thou/uL (0.11-0.59); #Neutrophils 3.1 thou/uL (1.40-6.50); %Basophils 1.4 % (0.0-1.0); %Eosinophils 2.6 % (0.0-10.0); %Lymphocytes 33.3 % (21.0-51.0); %Monocytes 8.1 % (0.0-10.0); %Neutrophils 54.6 % (42.0-75.0); Hemoglobin 13.6 g/dL (12.0-16.0); Mean Corpuscular HGB CONC 33.1 g/dL (32.0-36.0); Mean Corpuscular Hemoglobin 31.3 pg (27.0-31.0); Mean Corpuscular Volume 94.7 fl (78.0-98.0); Mean Platelet Volume 7.4 fL (7.4-10.4); Platelet Count 339 10x3/uL (130-400); RBC Distribution Width 12.3 % (11.5-14.5); Red Blood Cell (RBC) Count 4.34 mill/uL (4.20-5.40); White Blood Cell (WBC) Count 5.7 10x3/uL (4.8-10.8)
[2022-06-01 10:56] LABS: Bilirubin Negative (Negative); Blood, Urine Negative (Negative); Clarity Clear (Clear); Glucose, Urine (Dipstick) Normal (Negative); Ketone, Urine Negative (Negative); Leukocyte Negative Leu/uL (Negative); Nitrite Negative (Negative); Protein, Urine (Dipstick) Negative (Neg-Trace); Specific Gravity, Urine 1.004 (1.002-1.036); Urobilinogen Normal mg/dL (Less than 2)
[2022-06-01 10:58] LABS: Pregnancy Test - Urine (BHCG) Negative (Negative); Pregu Control Background? CLEAR/WHITE (CLR/WHITE); Pregu Control Bar Appear? YES (CONTROL BAR); Specific Gravity 1.004 (1.002-1.036)
[2022-06-01 11:16] LABS: ALT (SGPT) 51 U/L (8-55); AST (SGOT) 44 U/L (5-34); Albumin 4.5 g/dL (3.5-5.0); Alkaline Phosphatase 43 U/L (40-110); Anion Gap 12 mmol/L (10-20); BUN (Urea Nitrogen) 14 mg/dL (7.0-18.7); Bilirubin, Total 0.3 mg/dL (0.2-1.2); Calc. Creatinine Clearance 0 mL/min (70-130); Calcium 9.6 mg/dL (7.8-10.44); Carbon Dioxide 23 mmol/L (22-29); Chloride 108 mmol/L (98-107); Estimated GFR 89; Globulin 3.1 g/dL (2.4-3.5); Glucose 81 mg/dL (70-105); Potassium 4.1 mmol/L (3.5-5.1); Protein, Total 7.6 g/dL (6.0-8.3); Sodium 139 mmol/L (136-145)
== END 2022-06-01 13:29 | disposition home or self-care (01) ==
LOC: ERS 09:59
DX: R10.9 Unspecified abdominal pain (principal); R91.1 Solitary pulmonary nodule; N28.1 Cyst of kidney, acquired; Z87.891 Personal history of nicotine dependence
CPT/HCPCS: 74177; 80053; 81003; 81025; 85025; 87086

== ENCOUNTER 2022-08-24 13:34 | Emergency (ER) | payer OTHER ==
[2022-08-24] MEDS ORDERED: Ondansetron PF 4 MG/2 ML Vial ONE (14:01)
[2022-08-24 14:09] LABS: #Eosinphils 0.2 thou/uL (0.0-0.7); #Monocytes 0.7 thou/uL (0.11-0.59); #Neutrophils 7.5 thou/uL (1.40-6.50); %Basophils 0.4 % (0.0-1.0); %Lymphocytes 19.2 % (21.0-51.0); %Monocytes 6.9 % (0.0-10.0); %Neutrophils 71.1 % (42.0-75.0); Hemoglobin 12.3 g/dL (12.0-16.0); Mean Corpuscular HGB CONC 31.7 g/dL (32.0-36.0); Mean Corpuscular Hemoglobin 30.8 pg (27.0-31.0); Mean Corpuscular Volume 97.2 fl (78.0-98.0); Mean Platelet Volume 9.3 fL (7.4-10.4); Platelet Count 348 10x3/uL (130-400); RBC Distribution Width 13.4 % (11.5-14.5); Red Blood Cell (RBC) Count 3.99 mill/uL (4.20-5.40); White Blood Cell (WBC) Count 10.5 10x3/uL (4.8-10.8)
[2022-08-24 14:33] LABS: ALT (SGPT) 71 U/L (8-55); AST (SGOT) 23 U/L (5-34); Albumin 4.5 g/dL (3.5-5.0); Alkaline Phosphatase 43 U/L (40-110); Anion Gap 13 mmol/L (10-20); BUN (Urea Nitrogen) 18 mg/dL (7.0-18.7); Bilirubin, Total 0.3 mg/dL (0.2-1.2); Calc. Creatinine Clearance 0 mL/min (70-130); Calcium 9.5 mg/dL (7.8-10.44); Carbon Dioxide 23 mmol/L (22-29); Chloride 107 mmol/L (98-107); Estimated GFR 66; Glucose 100 mg/dL (70-105); Potassium 4.1 mmol/L (3.5-5.1); Protein, Total 7.5 g/dL (6.0-8.3); Sodium 139 mmol/L (136-145)
[2022-08-24 15:18] LABS: Bilirubin Negative (Negative); Blood, Urine Negative (Negative); Clarity Turbid (Clear); Glucose, Urine (Dipstick) Normal (Negative); Ketone, Urine Negative (Negative); Leukocyte Negative Leu/uL (Negative); Nitrite Negative (Negative); Protein, Urine (Dipstick) Negative (Neg-Trace); Specific Gravity, Urine 1.018 (1.002-1.036); Urobilinogen Normal mg/dL (Less than 2); pH, Urine 7.5 (5.0-9.0)
[2022-08-24] MEDS ORDERED: Ketorolac Tromethamine 30 MG/ML VIAL ONE (16:45)
== END 2022-08-24 18:17 | disposition home or self-care (01) ==
LOC: ERS 13:34
DX: O20.9 Hemorrhage in early pregnancy, unspecified (principal); O99.331 Smoking (tobacco) complicating pregnancy, first trimester; F17.210 Nicotine dependence, cigarettes, uncomplicated; O99.411 Diseases of the circulatory system complicating pregnancy, first trimester; I34.1 Nonrheumatic mitral (valve) prolapse; Z3A.01 Less than 8 weeks gestation of pregnancy; Z79.899 Other long term (current) drug therapy
CPT/HCPCS: 36415; 76856; 80053; 81003; 82533; 84702; 85025; 86850; 86900; 86901; 93005; J1885; J2405

== ENCOUNTER 2023-01-02 13:14 | Outpatient (CLI) | payer OTHER | END 2023-01-02 13:15 | disposition home or self-care (01) | LOC: CT 13:14 | PROVIDERS: ATTEND Internal Medicine | DX: R06.00 Dyspnea, unspecified (principal); R91.1 Solitary pulmonary nodule; N20.0 Calculus of kidney | CPT/HCPCS: 71250 ==